=== PATIENT | female | born 1940 | race Caucasian/White ===

== ENCOUNTER 2024-07-16 09:39 | Emergency (ER) | payer MEDICARE, OTHER, SELFPAY ==
[2024-07-16] MEDS: SUBLIMAZE 100 MCG IV (09:59)
[2024-07-16 10:00] VITALS: BP 150/94
--- NOTE | 2024-07-16 10:32 | ED.GENMED ---
Addendum entered and electronically signed by Yunior Zhao MD 07/16/24 15:08:
Critical care statement: A total of 40 minutes of critical care time was provided for this patient. This includes management of unstable vital signs, evaluation of the patient at bedside, reviewing the patient's pertinent medical records, discussion
with consultants, review of old EKGs and review of pertinent medical records. This time with separate from time utilized to perform the aforementioned documented procedures
Original Note:
History of Present Illness
General
Chief Complaint: Fall
Source: patient
Exam Limitations: none
Time Seen by Provider: 07/16/24 09:50
Nursing documentation reviewed up to this point in time: agreed with
History of Present Illness
History of Present Illness:
Patient with history of dementia, presents to ED secondary to mechanical fall while attending [facility]. Patient presents with obvious injury to left ankle with bleeding. Patient does not take any blood thinning medication. Patient unable to
provide any further information. However, per daughter, who was with the patient, patient tripped and fell forward with obvious deformity to her left ankle. Denies any other injuries from the fall, including head injury. Patient's vaccinations
are up-to-date, including tetanus vaccination.
Past History
Past History
ED Past Medical History: HTN, Hypercholesterolemia, IDDM and Other (Temporal arteritis, Alzheimer's/Dementia, PE)
ED Past Surgical History: Appendectomy, Orthopedic and Other (Temporal artery biopsy)
Social History
Tobacco: Non-smoker
Alcohol: None
Drug: None
Personal:
Living: with family
Family History
Family History: Diabetes
Review of Systems
Review of Systems
Allergies reviewed?: Yes
Unable to obtain full review of systems at this time due to: dementia
All Other Systems: Not applicable
Phy Exam
Physical Exam
Physical Exam:
Physical Exam
General: moderate painful distress, not acutely ill. afebrile
Head: nc/at. eomi
Neck: supple. no meningeal signs.
Heart: s1/s2 regular rate and rhythm, no murmur. equal radial pulses.
Lungs: no acute respiratory distress. clear bilaterally
Abdomen: normal bowel sounds. not tender.
Neuro: alert and oriented x1. no focal neurological deficits
Skin: no rash
Psychiatric: well kept. interactive and cooperative
Extremities: left medial malleolar laceration with nonpulsatile bleeding noted with bony exposure. DPP palpable with use of doppler.
Course
Orders/Labs/Results
Orders:
Orders
07/16/24 09:51
CR Ankle - Left 2 Views Urgent
Reason For Exam: trauma w deformity
CR Hip - RT without Pel 1 Vw Urgent
Reason For Exam: trauma
07/16/24 09:52
Fentanyl Citrate/Pf [Sublimaze] 100 mcg IV NOW STA
07/16/24 10:17
IV Insert/Care/Rem.- Treatment PRN
07/16/24 10:25
Complete Blood Count/With Diff Urgent
Comprehensive Metabolic Panel Urgent
PTT Urgent
Prothrombin Time Urgent
07/16/24 10:30
CeFAZolin 1 GRAM [Ancef] 1 gram in 5 ml IV NOW
07/16/24 11:17
HYDROmorphone [Dilaudid] 0.5 mg .ROUTE .STK-MED ONE
07/16/24 11:18
HYDROmorphone [Dilaudid] 0.5 mg IV NOW STA
Abnormal Lab Results
07/16/24
10:25
MCH 33.6 H pg
(27.0-31.0)
MPV 11.8 H fL
(7.4-10.4)
Absolute Monos (auto) 0.7 H 10^3/uL
(0.1-0.6)
APTT 22.8 L Sec
(23.4-35.0)
BUN 46 H mg/dl
(7-17)
Creatinine 1.6 H mg/dL
(0.6-1.0)
Glucose 154 H mg/dl
(70-99)
AST 39 H U/L
(14-36)
Total Protein 6.2 L g/dl
(6.3-8.2)
07/16/24 10:25
07/16/24 10:25
Vital Signs
Initial and Last Documented VS:
Initial Vital Signs
BP
150/94
07/16/24 10:00
Last Documented Vital Signs
Temp Pulse Resp BP Pulse Ox
97.7 F 93 22 149/92 94
07/16/24 11:39 07/16/24 11:39 07/16/24 11:39 07/16/24 11:39 07/16/24 11:39
Procedures
Joint/Fracture Reduction
Left Ankle:
Indication for procedure:: ankle fx/dislocation
Anesthesia/sedation: 1% Lidocaine w/ Epi
Injury was: open
Further treatement: needs further treatment
Post reduction exam: stable
Capillary Refill: normal
Normal distal neurovascular exam?: Yes
MDM/Problems Addressed
MDM/Problems Addressed:
X-ray reviewed and discussed with trauma surgeon @ [facility] () who agreed to accept transfer. Requests irrigation, iv abx prior to transfer.
Transfer consent on the chart.
Prior to transfer, decision made to reduce left ankle dislocation, after hematoma block. Since left ankle successfully reduced with better alignment and posterior splint applied afterwards. Patient remains neurovascular intact.
*Critical Care Note
Total Time (30-74mins, 75-104mins- exclusive of procedures): Not Applicable
ED Attending Note
-
Portions of this chart may have been created with voice recognition software.� Occasional wrong word or��sound alike� substitutions may have occurred due to the inherent limitations of voice recognition software.
Discharge Plan
Departure
Patient Disposition: Acute Care Hospital
Date of Disposition: 07/16/24
Time of Disposition: 10:37
Discharge Problem:
Open ankle fracture
Prescriptions:
No Action
simvastatin 40 MG tablet
40 mg PO QPM
oxbeanje-mjm-pzvy-FA-vit K-lut [Centrum Silver Women] 1 EACH tablet
1 ea PO DAILY
cholecalciferol (vitamin D3) 2,000 UNITS tablet
2,000 units PO BID
C,E,zinc,copper [id number] 1 CAP capsule
1 cap PO DAILY
calcium carbonate [Antacid Extra-Strength] 1 TABLET tablet,chewable
750 mg PO DAILY
vitamin B complex-folic acid [Super B Maxi Complex] 0.4 MG tablet
0.4 mg PO DAILY
tocilizumab [Actemra] 162 MG/0.9 ML syringe
162 mg SC TU
prednisone 20 MG tablet
10 mg PO DAILY
ropinirole 0.25 MG tablet
0.5 mg PO DAILY@1700
insulin glargine [Lantus U-100 Insulin] 1,000 UNITS/10 ML solution
26 units SC HS
tramadol 50 MG tablet
50 mg PO TIDPRN PRN (Reason: MODERATE PAIN)
ropinirole 0.25 MG tablet
0.25 mg PO DAILYPRN PRN (Reason: if restless leg in the night)
calcium carbonate 500 MG tablet,chewable
500 mg PO BID
insulin aspart U-100 [Novolog FlexPen U-100 Insulin] 300 UNITS/3 ML insulin pen
16 units SC BID@0800,1700
amlodipine 2.5 MG tablet
2.5 mg PO DAILY 30 Days Qty: 30 0RF
furosemide 80 MG tablet
80 mg PO BID@0800,1600 30 Days Qty: 60 0RF
Hospital Transfer
Other hospital: [facility]
I certify that the patient requires transfer: Yes
Discussed case with accepting physician:
Reason for transfer: medical necessity, availability of service and specialties available
Interventions
Interventions:
*Risk Screen - Suicide Last Done: 07/16/24 10:57
*General Assessment Last Done: 07/16/24 10:41
*Neglect/Abuse Screening Last Done: 07/16/24 11:38
ED- Fall Risk Assessment Last Done: 07/16/24 11:39
*ED COVID-19 Vaccine History Last Done: 07/16/24 10:41
*Nursing Disposition Last Done: 07/16/24 11:39
ED-Musculoskeletal Assessment Last Done: 07/16/24 11:04
ED- Neurological Assessment Last Done: 07/16/24 11:07
ED-Skin Assessment Last Done: 07/16/24 11:06
Discharge Date and Time
Discharge Date/Time: 07/16/24 11:46
Print Language: EQUATOR[employer] GUINEAN
[2024-07-16] MEDS: ANCEF 5 IV (10:37)
[2024-07-16 10:43] VITALS: BP 150/94
[2024-07-16 10:50] LABS: % Basophils 0.6 % (0-2); % Immature Granulocytes 0.2 % (0-0.5); % Lymphocytes 30.3 % (20.5-51.1); % Monocytes 8.2 % (1.7-9.3); % Neutrophils 57.7 % (42.2-75.2); Absolute Basophils 0.1 10^3/uL (0-0.2); Absolute Eosinophils 0.3 10^3/uL (0-0.7); Absolute Lymphocytes 2.5 10^3/uL (1.2-3.4); Absolute Monocytes 0.7 10^3/uL (0.1-0.6); Absolute Neutrophils 4.8 10^3/uL (1.4-6.5); Hematocrit 42.4 % (37.0-47.0); Hemoglobin 14.5 g/dL (12.0-16.0); Mean Corp Hgb Conc. 34.2 g/dL (33.0-37.0); Mean Corpuscular Hgb 33.6 pg (27.0-31.0); Mean Corpuscular Volume 98.4 fL (81.0-99.0); Mean Platelet Volume 11.8 fL (7.4-10.4); Nucleated Red Blood Cells % 0 %; Platelet Count 160 10^3/uL (130-400); Red Blood Cell Count 4.31 10^6/uL (4.20-5.40); Red Cell Dist. Width 13.2 % (11.5-14.5); White Blood Cell Count 8.3 10^3/uL (4.8-10.8)
[2024-07-16 10:51] LABS: ALT (SGPT) 32 U/L (0-35); AST (SGOT) 39 U/L (14-36); Albumin 3.9 g/dl (3.5-5.0); Alkaline Phosphatase 115 U/L (38-126); Blood Urea Nitrogen 46 mg/dl (7-17); Calcium 9.6 mg/dl (8.4-10.2); Carbon Dioxide 28 mmol/L (22-30); Chloride 104 mmol/L (98-107); Estimated Creatinine Clearance 31 ml/min; Glucose 154 mg/dl (70-99); Potassium 4.4 mmol/L (3.5-5.1); Sodium 140 mmol/L (135-145); Total Bilirubin 0.6 mg/dl (0.2-1.3); Total Protein 6.2 g/dl (6.3-8.2); eGFR 31.61
[2024-07-16 11:00] VITALS: BP 149/92
[2024-07-16 11:08] LABS: INR 0.85; PT 11.9 Sec (11.4-14.6)
[2024-07-16 11:09] LABS: APTT 22.8 Sec (23.4-35.0)
[2024-07-16] MEDS: DILAUDID 0.5 MG IV (11:18)
[2024-07-16 11:39] VITALS: BP 149/92
== END 2024-07-16 11:46 | disposition short-term general hospital (02) ==
LOC: EMR 09:39
PROVIDERS: EMERGENCY PHYSICIAN Emergency Medicine; FAMILY PHYSICIAN Family Medicine
DX: S82.842B Displaced bimalleolar fracture of left lower leg, initial encounter for open fracture type I or II (principal); S93.05XA Dislocation of left ankle joint, initial encounter; W01.0XXA Fall on same level from slipping, tripping and stumbling without subsequent striking against object, initial encounter
CPT/HCPCS: 99291; 64450; 96374; 27840; 96375 ×2; 73501; 73600; 80053; 85025; 85610; 85730